=== PATIENT | female | born 1975 | race African-American/Black ===

== ENCOUNTER 2017-06-26 17:22 | Emergency (ER) | payer OTHER, SELFPAY ==
--- NOTE | 2017-06-26 18:41 | RAD REPORT ---
EXAM DESCRIPTION: CT - Head Brain Wo Cont - 06/26/2017 6:29 pm CLINICAL HISTORY: Altered consciousness COMPARISON: None. TECHNIQUE: All CT scans are performed using dose optimization technique as appropriate and may inclu de automated exposure control or mA/KV adjustment according to patient size. FINDINGS: No intracranial hemorrhage, hydrocephalus or extra-axial fluid collection.No areas of brai n edema or evidence of midline shift. The paranasal sinuses and mastoids are clear. The calvarium is intact. IMPRESSION: No acute intracranial abnormality.
[2017-06-26 18:45] LABS: Barbiturates NEGATIVE; Benzodiazepines NEGATIVE; Cocaine NEGATIVE; METHAMPHETAM NEGATIVE; Opiates NEGATIVE; Phencyclidine POSITIVE; THC Cannibis POSITIVE
[2017-06-26 18:52] LABS: Urine Blood 2+ (NEG); Urine Glucose NEGATIVE (NEG); Urine Protein 1+ (NEG); Urine Specific Gravity >1.030 (1.005-1.030)
[2017-06-26 19:02] LABS: Absolute Lymphocytes (CBC) 3.6 K/uL (0.7-4.9); Absolute Monocytes 0.3 K/uL (0.1-1.3); Absolute Neutrophil 3.4 K/uL (1.8-8.0); Eosinophils % 2.9 % (0-4.4); Hematocrit 40.1 % (36.0-45.0); Lymphocytes % 47.1 % (15.3-44.8); MCV 83.9 fL (80-100); MPV 8.3 fL (7.6-11.3); Monocytes % 4.6 % (3.3-12.3); RBC Red Blood Cell Count 4.77 M/uL (3.86-4.86)
[2017-06-26 19:08] LABS: Bicarbonate 24 mEq/L (21-31); Glucose Level 98 mg/dL (65-120); Potassium 3.6 mEq/L (3.6-5.0); Sodium Level 134 mEq/L (135-145)
[2017-06-26 19:11] LABS: Protime INR 0.97
[2017-06-26 19:14] LABS: ALT/SGPT 8 IU/L (10-60); AST/SGOT 14 IU/L (10-42); Albumin 3.7 g/dL (3.2-5.5); Alkaline Phosphatase 60 IU/L (42-121); BUN Blood Urea Nitrogen 9 mg/dL (6-20); Bilirubin Direct < 0.1 mg/dL (0-0.2); Bilirubin Total 0.4 mg/dL (0.3-1.2); Glomerular Filtration Rate > 90 mL/min (=/>90); Protein, Total 6.9 g/dL (6.0-8.3)
[2017-06-26 19:30] LABS: Alcohol Serum/Plasma < 10 mg/dl; Phenytoin (Dilantin) Level < 2.5 ug/ml (10.0-20.0); Salicylates Level < 4.0 mg/dl (<30)
--- NOTE | 2017-06-26 19:44 | ER ---
Nurse's Notes [facility] Name: Lalita Ruff Age: 41 yrs Sex: Female : 1975 Arrival Date: 06/26/2017 Time: 17:25 Bed 20 Private MD: Diagnosis: Altered mental status, unspecified;Drug Abuse Presentation: 06/26 17:26 Presenting complaint: EMS states: EMS states patient was picking up her vehicle after ae1 being discharged from [facility] for altered mental status when EMS was called because patient was acting confused and appeared unable to drive. Patient does not know how she got to [place]. Patient alert and oriented to self. Transition of care: patient was not received from another setting of care. Onset of symptoms is unknown. Care prior to arrival: IV initiated. 20 GA, in the right hand. 17:26 Method Of Arrival: EMS: [facility] ae1 17:26 Acuity: DARLENE 2 ae1 Triage Assessment: 17:36 Neuro: Level of Consciousness is awake, alert, obeys commands, confused, Oriented to ae1 person. Respiratory: Airway is patent Respiratory effort is even, unlabored, Respiratory pattern is regular, symmetrical. 18:28 General: Appears in no apparent distress. uncomfortable, slender, unkempt, Behavior is ae1 cooperative, anxious. Pain: Denies pain. EENT: No signs and/or symptoms were reported regarding the EENT system. Cardiovascular: Heart tones S1 present Patient's skin is warm and dry. GI: No signs and/or symptoms were reported involving the gastrointestinal system. Abdomen is round non-distended. : No signs and/or symptoms were reported regarding the genitourinary system. Urine is cloudy. Derm: Skin is normal. Musculoskeletal: No signs and/or symptoms reported regarding the musculoskeletal system. Historical: - Allergies: 18:23 Cinnamon; ae1 18:23 cantalope; ae1 - Home Meds: 18:23 Advair Diskus 250-50 mcg/dose Inhl dsdv [Active]; Albuterol Nebulizer [Active]; ae1 - PMHx: 18:26 Asthma; ae1 - Immunization history:: Adult Immunizations unknown. - Social history:: Smoking status: Patient uses tobacco products, smokes one pack cigarettes per day. Patient/guardian denies using street drugs. Screenin:34 Abuse screen: Denies threats or abuse. Nutritional screening: No deficits noted. ae1 Tuberculosis screening: No symptoms or risk factors identified. Fall Risk None identified. Assessment: 19:08 Reassessment: Male friend at bedside. Patient is emotional, crying. Provider notified, ae1 that boyfriend is at bedside. 19:15 Reassessment: see full triage assessment. ae1 20:14 Reassessment: Patient appears in no apparent distress at this time. Patient and/or tl2 family updated on plan of care and expected duration. Pain level reassessed. Pt family verbalized understanding of discharge instructions, need for follow up safety practices. Boyfriend here to take pt home. Vital Signs: 17:25 BP 155 / 94; Pulse 79; Resp 21; Temp 98.8(O); Pulse Ox 97% on R/A; Weight 62.6 kg (R); ae1 19:16 BP 154 / 85; Pulse 81; Resp 16; Pulse Ox 97% on R/A; ae1 20:14 BP 122 / 68; Pulse 58; Resp 18; Pulse Ox 95% on R/A; tl2 ED Course: 17:25 Patient arrived in ED. ae1 17:34 Triage completed. ae1 17:35 Arm band placed on left wrist. ae1 17:35 Bed in low position. Call light in reach. Side rails up X2. Pulse ox on. NIBP on. Warm ae1 blanket given. 17:53 Landen Wilson PA is PHCP. jr8 17:53 Joel Weir MD is Attending Physician. jr8 18:17 Waqar Helm, ALLEN is Primary Nurse. ae1 18:[address] via wheelchair. sw 18:26 Maintain EMS IV. Dressing intact. Good blood return noted. Site clean \T\ dry. Gauge \T\ ae 1 site: 22 right wrist. 18:[address] via stretcher. ae1 18:29 CT Head Brain wo Cont In Process Unspecified. EDMS 18:52 Initial lab(s) drawn, by me, sent to lab. mh5 18:53 Acetaminophen Sent. mh5 18:53 Basic Metabolic Panel Sent. mh5 18:53 CBC with Diff Sent. mh5 18:53 ETOH Level Sent. mh5 18:53 Hepatic Function Sent. mh5 18:53 PT-INR Sent. 5 18:53 Ptt, Activated Sent. 5 18:53 Salicylate Sent. 5 19:17 EKG done, by ED staff, reviewed by Joel Weir MD. 5 20:14 No provider procedures requiring assistance completed. IV discontinued, intact, tl2 bleeding controlled, No redness/swelling at site. Pressure dressing applied. Administered Medications: No medications were administered Outcome: 19:44 Discharge ordered by . jr8 20:14 Discharged to home via wheelchair, with family. tl2 20:14 Condition: stable 20:14 Discharge instructions given to family, Instructed on discharge instructions, follow up and referral plans. safety practices, Demonstrated understanding of instructions, follow-up care. 20:17 Patient left the ED. tl2 Signatures: Dispatcher [employer] EDMS Landen Wilson PA PA jr8 Abby Peña Taylor, RN RN tl2 Waqar Helm RN RN ae1 Kathleen Soto [facility] Corrections: (The following items were deleted from the chart) 19:22 19:08 Reassessment: Male friend at bedside. ae1 ae1
[2017-06-26 19:45] LABS: Urine Specific Gravity >1.030 (1.005-1.030)
--- NOTE | 2017-06-26 19:45 | EDPHYS ---
Physician Documentation [facility] Name: Lalita Ruff Age: 41 yrs Sex: Female : 1975 Arrival Date: 06/26/2017 Time: 17:25 Bed 20 Private MD: ED Physician Joel Weir HPI: 06/26 18:21 This 41 yrs old Black Female presents to ER via EMS with complaints of Altered Mental jr8 Status. 18:21 The patient presents with confusion, disorientation, to place, to time. Onset: The jr8 symptoms/episode began/occurred at an unknown time. Possible causes: unknown. Associated signs and symptoms: The patient has no apparent associated signs or symptoms. Current symptoms: In the emergency department the patient's symptoms are unchanged from the initial presentation. Patient's baseline: Neuro: alert and fully oriented, Motor: no deficits, Ambulation: walks without assistance, Speech: normal. It is unknown whether or not the patient has had similar symptoms in the past. The patient has been recently seen by a physician:. EMS stated that patient was recently seen at [facility] for AMS. Was released when EMS was called because patient was trying to miner pick car but was confused and could not drive. Patient came to [facility] at that time . Historical: - Allergies: 18:23 Cinnamon; ae1 18:23 cantalope; ae1 - Home Meds: 18:23 Advair Diskus 250-50 mcg/dose Inhl dsdv [Active]; Albuterol Nebulizer [Active]; ae1 - PMHx: 18:26 Asthma; ae1 - Immunization history:: Adult Immunizations unknown. - Social history:: Smoking status: Patient uses tobacco products, smokes one pack cigarettes per day. Patient/guardian denies using street drugs. ROS: 18:21 Eyes: Negative for injury, pain, redness, and discharge, ENT: Negative for injury, jr8 pain, and discharge, Neck: Negative for injury, pain, and swelling, Cardiovascular: Negative for chest pain, palpitations, and edema, Respiratory: Negative for shortness of breath, cough, wheezing, and pleuritic chest pain, Abdomen/GI: Negative for abdominal pain, nausea, vomiting, diarrhea, and constipation, Back: Negative for injury and pain, MS/Extremity: Negative for injury and deformity, Skin: Negative for injury, rash, and discoloration. 18:21 Neuro: Positive for altered mental status. Exam: 18:21 Head/Face: Normocephalic, atraumatic. Eyes: Pupils equal round and reactive to light, jr8 extra-ocular motions intact. Lids and lashes normal. Conjunctiva and sclera are non-icteric and not injected. Cornea within normal limits. Periorbital areas with no swelling, redness, or edema. ENT: Nares patent. No nasal discharge, no septal abnormalities noted. Tympanic membranes are normal and external auditory canals are clear. Oropharynx with no redness, swelling, or masses, exudates, or evidence of obstruction, uvula midline. Mucous membranes moist. Neck: Trachea midline, no thyromegaly or masses palpated, and no cervical lymphadenopathy. Supple, full range of motion without nuchal rigidity, or vertebral point tenderness. No Meningismus. Cardiovascular: Regular rate and rhythm with a normal S1 and S2. No gallops, murmurs, or rubs. Normal PMI, no JVD. No pulse deficits. Respiratory: Lungs have equal breath sounds bilaterally, clear to auscultation and percussion. No rales, rhonchi or wheezes noted. No increased work of breathing, no retractions or nasal flaring. Abdomen/GI: Soft, non-tender, with normal bowel sounds. No distension or tympany. No guarding or rebound. No evidence of tenderness throughout. Back: No spinal tenderness. No costovertebral tenderness. Full range of motion. Skin: Warm, dry with normal turgor. Normal color with no rashes, no lesions, and no evidence of cellulitis. MS/ Extremity: Pulses equal, no cyanosis. Neurovascular intact. Full, normal range of motion. 18:21 Neuro: Orientation: to person, Not oriented to place, time, situation, Mentation: able to follow commands, confused, Memory: immediate memory is impaired, remote memory is intact. recent memory is impaired, Cranial nerves: CN I not tested, CN II- XII are normal as tested, visual brown are intact. extraocular movements are intact, Facial palsy and sensory deficits are absent. Speech is clear and appropriate. Tongue strength is normal, Cerebellar function: is grossly normal, Motor: moves all fours, strength is 5/5 in all extremities, Sensation: no obvious gross deficits, seizure activity, is not displayed by the patient, Abnormal movements: there are no abnormal movements. Vital Signs: 17:25 BP 155 / 94; Pulse 79; Resp 21; Temp 98.8(O); Pulse Ox 97% on R/A; Weight 62.6 kg (R); ae1 19:16 BP 154 / 85; Pulse 81; Resp 16; Pulse Ox 97% on R/A; ae1 20:14 BP 122 / 68; Pulse 58; Resp 18; Pulse Ox 95% on R/A; tl2 MDM: 17:53 Patient medically screened. jr8 19:42 Data reviewed: vital signs, nurses notes, lab test result(s), EKG, radiologic studies, jr8 CT scan, and as a result, I will discharge patient. Data interpreted: Pulse oximetry: on room air is 97 %. Interpretation: normal. Counseling: I had a detailed discussion with the patient and/or guardian regarding: the historical points, exam findings, and any diagnostic results supporting the discharge/admit diagnosis, lab results, radiology results, the need for outpatient follow up, a family practitioner, to return to the emergency department if symptoms worsen or persist or if there are any questions or concerns that arise at home. 19:43 ED course: Patient now alert and oriented to person, place, time, event. Remembers past jr8 and current events. Boyfriend here to drive her home safely. Counseled on drug abuse . 06/26 18:07 Order name: Acetaminophen; Complete Time: 19:30 06/26 18:07 Order name: Basic Metabolic Panel; Complete Time: 19:30 06/26 18:07 Order name: CBC with Diff; Complete Time: 19:30 06/26 18:07 Order name: ETOH Level; Complete Time: 19:30 06/26 18:07 Order name: Hepatic Function; Complete Time: 19:30 06/26 18:07 Order name: PT-INR; Complete Time: 19:30 06/26 18:07 Order name: Ptt, Activated; Complete Time: 19:30 06/26 18:07 Order name: Salicylate; Complete Time: 19:30 06/26 18:07 Order name: Urine Drug Screen; Complete Time: 19:30 06/26 18:07 Order name: Dilantin; Complete Time: 19:30 [facility] 06/26 18:07 Order name: CT Head Brain wo Cont; Complete Time: 19:30 [facility] 06/26 18:38 Order name: Urine Dipstick--Ancillary (enter results); Complete Time: 19:37 2 06/26 19:34 Order name: Urine --Ancillary (enter results); Complete Time: 19:55 [facility] 06/26 18:07 Order name: EKG; Complete Time: 18:08 [facility] 06/26 18:07 Order name: EKG - Nurse/Tech; Complete Time: 19:15 [facility] 06/26 18:07 Order name: IV Saline Lock; Complete Time: 18:58 [facility] 06/26 18:07 Order name: Labs collected and sent; Complete Time: 18:58 [facility] 06/26 18:07 Order name: Urine Dipstick-Ancillary (obtain specimen); Complete Time: 18:28 [facility] 06/26 18:07 Order name: Urine Test (obtain specimen); Complete Time: 18:28 Administered Medications: No medications were administered Disposition: 06/26/17 19:44 Discharged to Home. Impression: Altered mental status, unspecified, Drug Abuse . - Condition is Stable. - Discharge Instructions: Alcohol and Drug Addiction, Finding Treatment, Altered Mental Status. - Medication Reconciliation Form, Thank You Letter, Antibiotic Education, Prescription Opioid Use form. - Follow up: Private Physician; When: 2 - 3 days; Reason: Recheck today's complaints, Continuance of care, Re-evaluation by your physician. - Problem is new. - Symptoms have improved. Addendum: 06/29/2017 07:44 Co-signature as Attending Physician, Joel Weir MD I agree with the assessment and w a plan of care. Signatures: Dispatcher [employer] EDMS Landen Wilson PA PA jr8 Patience Alvarado, RN RN tl2 Waqar Helm RN RN ae1 Joel Weir MD MD me Corrections: (The following items were deleted from the chart) 06/26 19:36 18:38 URINE --ANCILLARY+[email or web address].LAB.BRZ ordered. EDMS EDMS 19:36 19:30 URINE --ANCILLARY+UC.LAB.BRZ reviewed. jr8 EDMS
--- NOTE | 2017-06-28 22:39 | EKG ---
Test Date: 2017-06-26 Test Time: 19:13:41 Soda Dialyzer: OUMOU MEASUREMENT RESULTS: Intervals: Rate: 56 LA: 110 QRSD: 88 QT: 462 QTc: 445 Shattuck: P: 76 LA: 110 QRS: 43 T: 40 INTERPRETIVE STATEMENTS: Sinus bradycardia with short LA Otherwise normal ECG Compared to ECG 07/22/1995 23:00:00 Short LA interval now present Sinus rhythm no longer present Atrial premature complex(es) no longer present Electronically Signed On 06-28-17 22:39:21 CDT by Dave Palumbo
== END 2017-06-26 20:17 | disposition home or self-care (01) ==
LOC: ER 17:22
DX: F19.10 Other psychoactive substance abuse, uncomplicated (principal); F17.210 Nicotine dependence, cigarettes, uncomplicated; J45.909 Unspecified asthma, uncomplicated; Z91.018 Allergy to other foods
CPT/HCPCS: 36415; 70450; 80048; 80076; 80185; 80307; 80320; 80329; 81003; 81025; 85025; 85610; 85730; 93005; 99284